=== PATIENT | male | born 1955 | race Caucasian/White ===

== ENCOUNTER 2020-10-04 21:57 | Inpatient (IN) ==
[2020-10-04] MEDS ORDERED: MoRPHine SULFATE 4 MG/ML 1 ML CARP\\VIAL IV STA (22:20)
[2020-10-04] MEDS ORDERED: SODIUM CHLORIDE 0.9% 1000ML 1,000 ML IV STA (22:20)
[2020-10-04] MEDS ORDERED: KETOROLAC TROMETHAMINE 15 MG/ML VIAL IV STA (22:20)
[2020-10-04] MEDS ORDERED: ONDANSETRON INJ 2 MG/ML 2 ML VIAL IV STA (22:20)
[2020-10-04 22:36] LABS: Basophils # (auto) 0.03 K/uL (0-0.2); Basophils % (auto) 0.2 %; Eosinophils # (auto) 0.03 K/uL (0-0.5); Eosinophils % (auto) 0.2 %; Hematocrit (blood only) 44.4 % (42-52); Hemoglobin 15.6 g/dL (14.0-18.0); Immature Granulocytes # (auto) 0.06 K/uL (0.00-0.02); Immature Granulocytes % (auto) 0.4 %; Lymphocytes # (auto) 2.59 K/uL (1.2-3.4); Lymphocytes % (auto) 17.8 %; Mean Corpuscular Hemoglobin 30.8 pg (25-34); Mean Corpuscular Hgb Conc 35.1 g/dL (32-36); Mean Corpuscular Volume 87.7 fL (80-100); Mean Platelet Volume 10.3 fL (7.4-10.4); Monocytes # (auto) 0.77 K/uL (0.11-0.59); Monocytes % (auto) 5.3 %; Neutrophils # (auto) 11.08 K/uL (1.4-6.5); Neutrophils % (auto) 76.1 %; Platelet Count 250 K/uL (130-400); RDW Coefficient of Variation 13.9 % (11.5-14.5); RDW Standard Deviation 44.7 fL (36.4-46.3); Red Blood Count 5.06 M/uL (4.7-6.1); White Blood Count 14.56 K/uL (4.8-10.8)
[2020-10-04 23:02] LABS: BUN Creatinine Ratio 15.7 (10-20); Calcium 9.1 mg/dl (8.5-10.1); Creatinine Clr Calc Pharmacy 42.6 ml/min; Est GFR (African American) 50.9 ml/min; Est GFR (Non-African American) 43.9 ml/min; Potassium 3.7 mmol/L (3.5-5.1)
[2020-10-04 23:05] LABS: Albumin Globulin Ratio 1.2 (0.9-2); Bilirubin,Total 0.5 mg/dl (0.2-1); Globulin 3.3 gm/dl (2.5-4.0); Total Protein 7.3 gm/dl (6.4-8.2)
--- NOTE | 2020-10-04 23:45 | CT Scan Report ---
CT SCAN OF THE ABDOMEN AND PELVIS WITHOUT IV CONTRAST CLINICAL HISTORY: Right lower quadrant abdominal pain/right flank pain. COMPARISON STUDY: No priors. TECHNIQUE: CT scan of the abdomen and pelvis is performed from the lung bases to the proximal femora. Images are reviewed in the axial, sagittal, and coronal planes. IV contrast was not administered for this examination. A dose lowering technique was utilized adhering to the principles of ALARA. CT DOSE: 365.50 mGy.cm FINDINGS: Lung bases: The heart is normal in size and without pericardial effusion. The lung bases are clear no ting dependent atelectasis. There is a tiny hiatal hernia. Liver: The unenhanced liver is normal in size, contour, and attenuation. There is no intrahepatic leo iary ductal dilatation. Scattered hepatic cysts measure up to 1.7 cm. Gallbladder: Unremarkable. Spleen: Normal in size and attenuation. Pancreas: Unremarkable. Adrenal glands: Unremarkable. Kidneys: The unenhanced kidneys are normal in size. There is a 9 mm obstructing calculus in the right proximal ureter at the level of L3-L4 below the ureteropelvic junction. This is best seen on image # 210 and causes moderate to severe right-sided hydronephrosis. There is associated right-sided perinep hric stranding and fluid. There are least 4 additional nonobstructing right renal calculi which measu re up to 6 mm. No left renal calculi are identified and there is no left-sided hydronephrosis. Renal sinus cysts on the left measure up to 3.8 cm. Abdominal vasculature: The abdominal aorta is normal in course and caliber noting mild atheroscleroti c calcification. Bowel: The small bowel and colon are normal in course and caliber. The appendix is not identified an d reported surgically absent. Peritoneum: There is no intraperitoneal free air or abdominal ascites. There is a fat-containing umbi lical hernia. Lymphadenopathy: None. Pelvic viscera: The bladder, prostate, and seminal vesicles are normal as visualized. Skeletal structures: There is mild lumbosacral spondylosis. No lytic or blastic lesions are seen. IMPRESSION: 1. There is a 9 mm obstructing calculus in the right proximal ureter as above. This causes moderate t o severe right hydronephrosis. 2. Additional nonobstructing right renal calculi as above. 3. No left renal calculi are seen. ACT 112: Negative or not required by law. Electronically signed by: Darnell Schofield M.D. 10/04/2020 11:43 PM
[2020-10-04] MEDS ORDERED: TAMSULOSIN HCL 0.4 MG CAP PO ONE (23:57)
--- NOTE | 2020-10-05 00:31 | Emergency Department Note ---
History of Present Illness General Chief complaint: Abdominal Pain Stated complaint: ABDOMINAL PAIN History of Present Illness Maximum Pain Intensity: 0 This 65-year-old has had an appendectomy in the past presents to the ER complaining of right flank pain that radiates to his groin Location: Right flank Quality: Sharp Severity: Moderate Duration: Tonight Timing: Started 2 hours ago Context: Patient was concerned and came in Modifying factors: better with nothing; worse with nothing Patient denies chest pain, dyspnea, fever, chills, vomiting, diarrhea, urinary symptoms. No testicular pain. Home Medications Medication Instructions Recorded Confirmed Type losartan 25 mg tablet 25 mg PO HS 10/04/20 10/05/20 History pantoprazole 40 mg tablet,delayed 40 mg PO DAILY 10/04/20 10/04/20 History release Allergies Allergy/AdvReac Type Severity Reaction Status Date / Time No Known Allergies Allergy Unverified 10/04/20 23:22 Past Med/Surg History Medical History High blood pressure Surgical History Hx of appendectomy Social History Smoking Status: Never smoker Feels Safe at Home: Yes Review of Systems A total of 10 systems reviewed and were otherwise negative Physical Exam Vital Signs Vital Signs - 24 hr 10/04/20 22:02 10/04/20 22:20 10/04/20 22:26 Temperature 36.3 C L Temperature Source Temporal Artery Scan Pulse Rate 70 65 69 Pulse Rate from SpO2 Sensor 68 Pulse Rhythm Regular Respiratory Rate 16 19 21 Respiratory Effort / Characteristics Non-Labored Spontaneous Respiratory Depth Normal Blood Pressure 193/108 H 184/107 H Blood Pressure Mean 136 132 Pulse Oximetry 100 100 97 Oxygen Delivery Method Room Air Room Air Room Air Sepsis Recent Fever Within 48 Hours No Sepsis New/Unexplained Change in Mental Status No Sepsis Action Taken by Nursing No Action Required 10/04/20 22:41 10/04/20 23:00 10/04/20 23:26 Temperature Temperature Source Pulse Rate 66 69 69 Pulse Rate from SpO2 Sensor 66 70 70 Pulse Rhythm Respiratory Rate 18 17 14 Respiratory Effort / Characteristics Respiratory Depth Blood Pressure 165/103 H 152/99 H 160/101 H Blood Pressure Mean 123 116 120 Pulse Oximetry 97 97 97 Oxygen Delivery Method Room Air Room Air Room Air Sepsis Recent Fever Within 48 Hours Sepsis New/Unexplained Change in Mental Status Sepsis Action Taken by Nursing 10/04/20 23:30 10/05/20 00:00 10/05/20 00:13 Temperature Temperature Source Pulse Rate 71 66 Pulse Rate from SpO2 Sensor 70 66 Pulse Rhythm Respiratory Rate 21 17 Respiratory Effort / Characteristics Respiratory Depth Blood Pressure 151/99 H 155/105 H 152/101 H Blood Pressure Mean 116 121 118 Pulse Oximetry 97 98 Oxygen Delivery Method Sepsis Recent Fever Within 48 Hours Sepsis New/Unexplained Change in Mental Status Sepsis Action Taken by Nursing 10/05/20 00:25 10/05/20 00:30 Temperature Temperature Source Pulse Rate 75 71 Pulse Rate from SpO2 Sensor 69 71 Pulse Rhythm Respiratory Rate 15 20 Respiratory Effort / Characteristics Respiratory Depth Blood Pressure 172/104 H 170/105 H Blood Pressure Mean 126 126 Pulse Oximetry 97 98 Oxygen Delivery Method Sepsis Recent Fever Within 48 Hours Sepsis New/Unexplained Change in Mental Status Sepsis Action Taken by Nursing VITALS: Vitals are noted on the nurse's note and reviewed by myself. Vital signs hypertensive GENERAL: Pleasant male who appears in pain, in no acute distress, nondiaphoretic, well-developed well-nourished. SKIN: The skin was without rashes, erythema, edema, or bruising. There is no tenting of the skin. Capillary reflex less than 2 seconds. HEAD: Normocephalic atraumatic. EARS: External auditory canals clear, EYES: Pupils equal round and reactive to light and accommodation. Conjunctivae without injection, sclerae without icterus. Extraocular movements intact. NOSE: Patent, turbinates without inflammation or discharge. MOUTH: Mucous membranes moist. Pharynx without erythema or exudate. Uvula midline. Airway patent. Tongue does not deviate. NECK: Supple without nuchal rigidity. No lymphadenopathy. No thyromegaly. Cervical spine is nontender. No JVD. HEART: Regular rate and rhythm LUNGS: Clear to auscultation bilaterally without wheezes, rales or rhonchi. No retractions or accessory muscle use. ABDOMEN: Positive bowel sounds x 4. Normal tympanic percussion. Soft, nontender, without masses or organomegaly. Chavarria sign negative. No guarding or rebound tenderness. No CVA tenderness MUSCULOSKELETAL: No muscle atrophy, erythema, or edema noted. NEURO: Patient was alert and oriented to person place and time. Normal sensation to light and sharp touch. No focal neurological deficits. Course Administered Medications Discontinued Medications Sodium Chloride (Nss 1000ml) 1,000 mls @ 999 mls/hr IV .Q1H1M STA Stop: 10/04/20 23:20 Last Infusion: 10/04/20 23:34 Dose: 0 mls/hr Documented by: [id number] Admin: 10/04/20 22:33 Dose: 999 mls/hr Documented by: [id number] Ketorolac Tromethamine (Ketorolac Tromethamine 15 Mg/Ml Vial) 10 mg IV NOW STA Stop: 10/04/20 22:21 Last Admin: 10/04/20 22:37 Dose: 10 mg Documented by: [id number] Morphine Sulfate (Morphine Sulfate 4 Mg/Ml 1 Ml Carp\Vial) 4 mg IV NOW STA Stop: 10/04/20 22:21 Last Admin: 10/04/20 22:36 Dose: 4 mg Documented by: [id number] Ondansetron HCl (Ondansetron Inj 2 Mg/Ml 2 Ml Vial) 4 mg IV NOW STA Stop: 10/04/20 22:21 Last Admin: 10/04/20 22:34 Dose: 4 mg Documented by: [id number] Tamsulosin HCl (Tamsulosin Hcl 0.4 Mg Cap) 0.4 mg PO NOW ONE Stop: 10/04/20 23:58 Last Admin: 10/05/20 00:11 Dose: 0.4 mg Documented by: [id number] Medical Decision Making Medical Records Attestation: I reviewed the patient's medical records. Home Medications Current Medication List: was personally reviewed by me Laboratory Data Attestation: I reviewed the patient's lab results. Result diagrams: 10/04/20 22:25 10/04/20 22:25 Lab Results 10/04/20 10/04/20 10/05/20 Range/Units 22:25 22:25 00:25 WBC 14.56 H (4.8-10.8) K/uL RBC 5.06 (4.7-6.1) M/uL Hgb 15.6 (14.0-18.0) g/dL Hct 44.4 (42-52) % MCV 87.7 (80-100) fL MCH 30.8 (25-34) pg MCHC 35.1 (32-36) g/dL RDW Std Deviation 44.7 (36.4-46.3) fL RDW Coeff of Rubina 13.9 (11.5-14.5) % Plt Count 250 (130-400) K/uL MPV 10.3 (7.4-10.4) fL Immature Gran % (Auto) 0.4 % Neut % (Auto) 76.1 % Lymph % (Auto) 17.8 % Gladwin % (Auto) 5.3 % Eos % (Auto) 0.2 % Baso % (Auto) 0.2 % Neut # (Auto) 11.08 H (1.4-6.5) K/uL Lymph # (Auto) 2.59 (1.2-3.4) K/uL Gladwin # (Auto) 0.77 H (0.11-0.59) K/uL Eos # (Auto) 0.03 (0-0.5) K/uL Baso # (Auto) 0.03 (0-0.2) K/uL Immature Gran # (Auto) 0.06 H (0.00-0.02) K/uL Sodium 141 (136-145) mmol/L Potassium 3.7 (3.5-5.1) mmol/L Chloride 109 H (98-107) mmol/L Carbon Dioxide 27 (21-32) mmol/L Anion Gap 5.0 (3-11) BUN 25 H (7-18) mg/dl Creatinine 1.61 H (0.6-1.4) mg/dl Est Cr Clr Drug Dosing 42.6 ml/min Est GFR ( Amer) 50.9 ml/min Est GFR (Non-Af Amer) 43.9 ml/min BUN/Creatinine Ratio 15.7 (10-20) Glucose 102 H (70-99) mg/dl Calcium 9.1 (8.5-10.1) mg/dl Total Bilirubin 0.5 (0.2-1) mg/dl AST 55 H (15-37) U/L ALT 50 (12-78) U/L Alkaline Phosphatase 60 (45-117) U/L Total Protein 7.3 (6.4-8.2) gm/dl Albumin 4.0 (3.4-5.0) gm/dl Globulin 3.3 (2.5-4.0) gm/dl Albumin/Globulin Ratio 1.2 (0.9-2) Urine Color Yellow Urine Appearance Clear (Clear) Urine pH 5.0 (4.5-7.5) Ur Specific [place] 1.022 (1.000-1.030) Urine Protein Negative (Negative) Urine Glucose (UA) Negative (Negative) Urine Ketones Negative (Negative) Urine Blood 3+ H (Negative) Urine Nitrite Negative (Negative) Urine Bilirubin Negative (Negative) Urine Urobilinogen Negative (Negative) Ur Leukocyte Esterase Negative (Negative) Urine WBC (Auto) 1-5 (0-5) /hpf Urine RBC (Auto) 0-4 (0-4) /hpf U Hyaline Cast (Auto) 1-5 (0-5) /lpf U Epithel Cells (Auto) 0-5 (0-5) /lpf Urine Bacteria (Auto) Negative (Negative) COVID-19 Eval Order 10/05/20 Range/Units 00:32 WBC (4.8-10.8) K/uL RBC (4.7-6.1) M/uL Hgb (14.0-18.0) g/dL Hct (42-52) % MCV (80-100) fL MCH (25-34) pg MCHC (32-36) g/dL RDW Std Deviation (36.4-46.3) fL RDW Coeff of Rubina (11.5-14.5) % Plt Count (130-400) K/uL MPV (7.4-10.4) fL Immature Gran % (Auto) % Neut % (Auto) % Lymph % (Auto) % Gladwin % (Auto) % Eos % (Auto) % Baso % (Auto) % Neut # (Auto) (1.4-6.5) K/uL Lymph # (Auto) (1.2-3.4) K/uL Gladwin # (Auto) (0.11-0.59) K/uL Eos # (Auto) (0-0.5) K/uL Baso # (Auto) (0-0.2) K/uL Immature Gran # (Auto) (0.00-0.02) K/uL Sodium (136-145) mmol/L Potassium (3.5-5.1) mmol/L Chloride (98-107) mmol/L Carbon Dioxide (21-32) mmol/L Anion Gap (3-11) BUN (7-18) mg/dl Creatinine (0.6-1.4) mg/dl Est Cr Clr Drug Dosing ml/min Est GFR ( Amer) ml/min Est GFR (Non-Af Amer) ml/min BUN/Creatinine Ratio (10-20) Glucose (70-99) mg/dl Calcium (8.5-10.1) mg/dl Total Bilirubin (0.2-1) mg/dl AST (15-37) U/L ALT (12-78) U/L Alkaline Phosphatase (45-117) U/L Total Protein (6.4-8.2) gm/dl Albumin (3.4-5.0) gm/dl Globulin (2.5-4.0) gm/dl Albumin/Globulin Ratio (0.9-2) Urine Color Urine Appearance (Clear) Urine pH (4.5-7.5) Ur Specific [place] (1.000-1.030) Urine Protein (Negative) Urine Glucose (UA) (Negative) Urine Ketones (Negative) Urine Blood (Negative) Urine Nitrite (Negative) Urine Bilirubin (Negative) Urine Urobilinogen (Negative) Ur Leukocyte Esterase (Negative) Urine WBC (Auto) (0-5) /hpf Urine RBC (Auto) (0-4) /hpf U Hyaline Cast (Auto) (0-5) /lpf U Epithel Cells (Auto) (0-5) /lpf Urine Bacteria (Auto) (Negative) COVID-19 Eval Order Covid19 at [facility] Imaging Data Attestation: I personally reviewed and interpreted this imaging study as follows: MDM Narrative Prior records/ancillary studies reviewed. Triage Nursing notes reviewed. Additional history obtained from the family. The patient's history was concerning for flank pain. Differential diagnosis: Etiologies such as renal colic, appendicitis, diverticulitis, mesenteric ischemia, aortic pathology, infections, inflammatory bowel disease, PUD, biliary pathology, UTI, as well as others were entertained. Physical examination findings: As above. ER treatment provided: Morphine, Zofran, Toradol, Flomax, IV fluids On reassessment the patient felt better. Diagnostic interpretation by me: The labs revealed leukocytosis. Urinalysis revealed There was no sign of UTI. Mildly elevated creatinine Imaging studies: As above Consultation: A consultation was placed with the hospitalist. The case was discussed and diagnostics were reviewed. The patient was evaluated in the ER for further treatment. It appears that the patient has isolated renal colic from a right sided stone. Patient was still in moderate amount of pain. He is a very large stone. Medicine was consulted. He will be evaluated for possible admission. By the evaluation outlined above emergent etiologies such as appendicitis, diverticulitis, mesenteric ischemia, aortic pathology, infections, inflammatory bowel disease, PUD, biliary pathology, UTI, as well as others were deemed relatively unlikely. The pt informed about the findings as listed above. All questions were answered and pleased with the treatment. The chart was completed utilizing [employer] Speech voice recognition software. Grammatical errors, random word insertions, pronoun errors, and incomplete sentences are an occassional consequence of this system due to software limitations, ambient noise, and hardware issues. Any formal questions or heidi rns about the content, text, or information contained within the body of this dictation should be directly addressed to the physician inside sales assistant for clarification. Impression & Plan Renal colic on right side, Ureterolithiasis, FREDDIE (acute kidney injury) Discharge Plan Visit Data Chief Complaint: Abdominal Pain Stated Complaint: ABDOMINAL PAIN ED Provider: Mily Bridges ED Midlevel Provider: Juanis Gimenez Discharge Problem: Renal colic on right side, Ureterolithiasis, FREDDIE (acute kidney injury) Patient Disposition: Admitted As Inpatient Condition: Good Forms Stand Alone Forms: emaze Prescriptions Prescriptions: No Action pantoprazole 40 mg Tablet,Delayed Release (Dr/Ec) 40 mg PO DAILY RF: 0 losartan 25 mg Tablet 25 mg PO HS RF: 0 Referrals Referrals: Noble Olivares MD [Primary Care Provider] -
[2020-10-05 01:02] LABS: Appearance Urine Clear (Clear); Bacteria Urine Automated Negative (Negative); Bilirubin Urine Negative (Negative); Blood Urine 3+ (Negative); Color Urine Yellow; Epithelial Cell Urine Auto 0-5 /lpf (0-5); Glucose Urine UA Negative (Negative); Ketones Urine Negative (Negative); Leukocyte Esterase Urine Negative (Negative); Nitrite Urine Negative (Negative); Protein Urine Negative (Negative); RBC Urine Automated 0-4 /hpf (0-4); Specific Gravity Urine 1.022 (1.000-1.030); Urobilinogen Urine Negative (Negative)
--- NOTE | 2020-10-05 02:36 | History and Physical Report ---
DATE OF ADMISSION: 10/05/2020 CHIEF COMPLAINT: Right abdominal pain and kidney stone. HISTORY OF PRESENT ILLNESS: This is a 65-year-old male with past medical history significant for hypertension, history of gastritis, history of rosacea, chronic back pain, presents with right sided abdominal pain and groin pain, started tonight, initially mild,but soon was very severe, also some nausea and radiated to the back which prompted him to come to the ER. Imaging studies shows right proximal ureteral kidney stone, 9 mm. The patient thinks that he might have passed a stone over 6 years ago; but otherwise not diagnosed with kidney stones in the past. Denies any fever or chills. No burning micturition, no hematuria. Normal bowel movements. No diarrhea or constipation. No chest pain, no shortness of breath, no cough, no fever, no chills, no headache, no dizziness, no blurred visions, no earache, no runny nose, no sore throat. Appetite is okay. Currently, resting comfortably and hemodynamically stable. ALLERGIES: ATENOLOL. PAST MEDICAL HISTORY: As mentioned above. PAST SURGICAL HISTORY: Colonoscopy, appendectomy. MEDICATIONS: The patient on losartan 25 mg p.o. at bedtime, Protonix 40 mg p.o. daily. FAMILY HISTORY: Significant for father has diabetes, paternal grandfather has diabetes, mother has hypertension. SOCIAL HISTORY: . No smoking. Drinks alcohol, no drug use. REVIEW OF SYSTEMS: As per HPI. Rest of review of systems is negative. PHYSICAL EXAMINATION: GENERAL: The patient is of moderate build, not in acute distress. VITAL SIGNS: Temperature 36.3, pulse 71, respiratory rate 20, blood pressure 170/105, oxygen 98% on room air. HEENT: EOMI. Oral mucosa moist. NECK: No JVD, no neck masses. CARDIOVASCULAR: S1 and S2 heard. Regular rate and rhythm. No murmur, no gallop. RESPIRATORY: Normal AP diameter. No accessory muscle use. No wheezing, no crackles. ABDOMEN: Soft, bowel sounds present. Mild tenderness in right lower quadrant. No guarding, no rigidity, no distention. CENTRAL NERVOUS SYSTEM: Cranial nerves II-XII grossly intact, nonfocal. EXTREMITIES: No edema, no erythema. LABORATORY DATA: WBC 14.1, hemoglobin 15.6, hematocrit 44.4, platelets 250. Sodium 141, potassium 3.7, chloride 109, bicarbonate 27, BUN 25, creatinine 1.6, serum glucose 102, calcium 9.1, total bilirubin 0.5, AST 55, ALT 50, alkaline phosphatase 60. Urinalysis, +3 blood. SARS-CoV-2 PCR pending. IMAGING DATA: CT of abdomen and pelvis is showing 9 mm obstructing calculus in the right proximal ureter causing moderate to severe hydronephrosis. Additional nonobstructing right renal calculi. ASSESSMENT AND PLAN: This is a 65-year-old male, presents with right renal colic. 1. Right renal colic and obstructing proximal right ureteral calculus. Received pain medication and Flomax in the ER. We will continue with IV fluids, IV Dilaudid p.r.n., Flomax. We will give a dose of Rocephin and consult urology in a.m. We will keep him n.p.o. until seen by urology. Monitor in the medical floor. 2. FREDDIE. Baseline creatinine 1.3, current creatinine 1.6. Getting fluids as above. Hold losartan. We will monitor the labs in a.m. 3. Hypertension. Holding losartan for FREDDIE. We will place him on IV hydralazine p.r.n. 4. Gastroesophageal reflux disease. Continue Protonix. 5. Deep venous thrombosis prophylaxis. Sequential compression devices for now. DISPOSITION: Admit to medical floor. Expect to discharge home and follow up with family doctor. Level 1 full code. Job ID: [id number] MTDD
[2020-10-05] MEDS ORDERED: ONDANSETRON INJ 2 MG/ML 2 ML VIAL IV PRN (02:42)
[2020-10-05] MEDS: SODIUM CHLORIDE 0.9% 1000ML 1,000 ML IV SCH ×3 (03:03→18:25)
[2020-10-05] MEDS: HYDROmorphone INJ 0.5 MG/0.5 ML SYR IV PRN ×5 (05:07→21:22)
[2020-10-05] MEDS: cefTRIAXone SODIUM 1,000 MG in DEXTROSE 5% 50 ML IV SCH (07:25)
[2020-10-05 07:43] LABS: Basophils # (auto) 0.02 K/uL (0-0.2); Basophils % (auto) 0.2 %; Eosinophils # (auto) 0.06 K/uL (0-0.5); Eosinophils % (auto) 0.5 %; Hematocrit (blood only) 40.6 % (42-52); Immature Granulocytes # (auto) 0.04 K/uL (0.00-0.02); Immature Granulocytes % (auto) 0.4 %; Lymphocytes # (auto) 2.47 K/uL (1.2-3.4); Lymphocytes % (auto) 22.2 %; Mean Corpuscular Hemoglobin 30.6 pg (25-34); Mean Corpuscular Hgb Conc 34.5 g/dL (32-36); Mean Corpuscular Volume 88.6 fL (80-100); Mean Platelet Volume 10.1 fL (7.4-10.4); Monocytes # (auto) 0.76 K/uL (0.11-0.59); Monocytes % (auto) 6.8 %; Neutrophils # (auto) 7.76 K/uL (1.4-6.5); Neutrophils % (auto) 69.9 %; Platelet Count 192 K/uL (130-400); RDW Standard Deviation 45.5 fL (36.4-46.3); Red Blood Count 4.58 M/uL (4.7-6.1); White Blood Count 11.11 K/uL (4.8-10.8)
[2020-10-05 07:58] LABS: BUN Creatinine Ratio 14.7 (10-20); Calcium 7.7 mg/dl (8.5-10.1); Creatinine Clr Calc Pharmacy 39.9 ml/min; Est GFR (African American) 47.3 ml/min; Est GFR (Non-African American) 40.8 ml/min; Magnesium 2.3 mg/dl (1.8-2.4); Potassium 3.3 mmol/L (3.5-5.1)
[2020-10-05] MEDS: PANTOprazole 40 MG TAB PO SCH (09:09)
[2020-10-05] MEDS: TAMSULOSIN HCL 0.4 MG CAP PO SCH (09:09)
--- NOTE | 2020-10-05 11:08 | Urology Consultation ---
Date of Consultation October 05, 2020 Assessment & Plan (1) Ureterolithiasis: (2) Renal colic on right side: (3) Peyronie disease: Patient has a large right ureteral stone but is stable. OR tomorrow for right ureteral stent NPO after midnight Outpatient treatment for his Peyronie's Disease History of Present Illness Reason for Consultation: right ureteral stone, obstruction Attending Physician: Yrn Gaming MD History of Present Illness The patient is a 65 yo male with a history of abrupt right flank pain yesterday. He presented to the ER and was found to have a 9mm proximal right ureteral stone with moderate hydronephrosis. Patient reports that he had some nausea yesterday - none today. He maybe passed one stop prior but didn't catch anything or seek treatment. He denies CP or SOB. No F/C. His pain is currently well controlled and his labs are stable. He also discussed with me fall that he experienced 2 years ago and he now has Peyronie Disease with an upward curvature and a plaque. He has not been treated for this but would like to be in the future. Allergies Allergy/AdvReac Type Severity Reaction Status Date / Time No Known Allergies Allergy Unverified 10/04/20 23:22 Home Medications Medication Instructions Recorded Confirmed Type losartan 25 mg tablet 25 mg PO HS 10/04/20 10/05/20 History pantoprazole 40 mg tablet,delayed 40 mg PO DAILY 10/04/20 10/04/20 History release Patient History Medical History High blood pressure Surgical History Hx of appendectomy Social History Smoking Status: Never smoker Do You Dip or Chew Tobacco: No; Hx Alcohol Use: No Hx Substance Use: No Preferred Language: [place]se Communication Ability: Effective [place] Required: No Beliefs That Will Affect Care: None marital status: Current Living Situation: Spouse Other Information That Helps Us Care for You: No Feels Safe at Home: Yes Safety Concerns: Feels Safe At This Time Assistive Devices: Glasses Review of Systems Review of Systems: neg other than per HPI Physical Exam Physical Exam: NAD unlabored regular rate soft NT LE without edema AO x 3 Results & Data ([facility]) Vital Signs (Past 12 Hours) Vital Signs Temp Pulse Pulse Resp BP BP Pulse Ox 10/05/20 07:26 36.7 C 69 16 149/90 H 97 10/05/20 03:02 152/90 H 10/05/20 02:30 36.7 C 78 14 167/100 H 98 10/05/20 01:30 88 20 155/86 H 99 10/05/20 00:30 71 20 170/105 H 98 10/05/20 00:25 75 15 172/104 H 97 10/05/20 00:13 152/101 H 10/05/20 00:00 66 17 155/105 H 98 10/04/20 23:30 71 21 151/99 H 97 10/04/20 23:26 69 14 160/101 H 97 PG Care Time/CCT Total # of Minutes Spent Total Time Spent with Patient: Total time spent is greater than 50% in coordination of care (as documented) at patient's floor/unit and/or counseling patient: [place] [address] Initial Inpt Care Lvl 3 Patient Type New History Detailed Exam Expanded Problem Focused Medical Decision Making Moderate Complexity Diagnoses Ureterolithiasis N20.1 Renal colic on right side N23 Peyronie disease N48.6 Time Spent (min) 30
[2020-10-05] MEDS ORDERED: ACETAMINOPHEN 1000 MG/100 ML IV IV STA (15:18)
[2020-10-05] MEDS ORDERED: HYDROmorphone INJ 0.5 MG/0.5 ML SYR IV STA (15:19)
[2020-10-05] MEDS: LIDOCAINE 5% 1 PATCH TD SCH (15:43)
[2020-10-05] MEDS: hydrALAZINE HCL 20 MG/ML VIAL IV PRN (15:48)
[2020-10-05] MEDS: oxyCODONE HCL IR 5 MG TAB (IMMEDIATE RELEASE) PO PRN (18:25)
[2020-10-05] MEDS: PHENAZOPYRIDINE HCL 200 MG TAB PO SCH (20:57)
[2020-10-06] MEDS: HYDROmorphone INJ 0.5 MG/0.5 ML SYR IV PRN ×3 (01:21→09:30)
[2020-10-06] MEDS: SODIUM CHLORIDE 0.9% 1000ML 1,000 ML IV SCH ×3 (01:21→17:59)
--- NOTE | 2020-10-06 07:06 | Anesthesiology Consultation ---
Date of Service October 06, 2020 Assessment & Plan (1) Encounter for pre-operative examination: Chart Review Chart Review: Acceptable Risk for Surgery Consults Requested none History Surgery Operation Date: 10/06/20 08:20 Proposed Procedures p Cystoscopy - Lucina Mnuoz MD s Ureteral Stent Insertion/Removal(Right) - Lucina Munoz MD Height/Weight Height: 5 ft 4 in Weight: 77.309 kg Allergies Allergy/AdvReac Type Severity Reaction Status Date / Time No Known Allergies Allergy Unverified 10/04/20 23:22 Medications Home Medications Medication Instructions Recorded Confirmed Last Taken losartan 25 mg tablet 25 mg PO HS 10/04/20 10/05/20 Unknown pantoprazole 40 mg tablet,delayed 40 mg PO DAILY 10/04/20 10/04/20 Unknown release Active Medications Generic Name Dose Route Start Last Admin Trade Name Freq PRN Reason Stop Dose Admin Hydralazine HCl 5 mg 10/05/20 02:42 10/05/20 15:48 Hydralazine Hcl 20 Mg/Ml Vial IV 11/04/20 02:41 5 mg Q6H PRN Administration Hypertension Hydromorphone HCl 0.5 mg 10/05/20 17:39 10/06/20 05:13 Hydromorphone Inj 0.5 Mg/0.5 Ml Syr IV 10/19/20 02:41 0.5 mg Q3H PRN Administration Pain Ceftriaxone Sodium 1,000 mg/ 50 mls @ 100 mls/hr 10/05/20 08:00 10/05/20 08:13 Dextrose IV 10/15/20 07:59 Infused Q24H SAEID Infusion Protocol Sodium Chloride 1,000 mls @ 125 mls/hr 10/05/20 02:42 10/06/20 01:21 Nss 1000ml IV 11/04/20 02:41 125 mls/hr .Q8H SAEID Administration Lidocaine 1 patch 10/05/20 15:30 10/05/20 15:43 Lidocaine 5% 1 Patch TD 11/04/20 15:29 1 patch QAM SAEID Administration Miscellaneous 1 ea 10/05/20 21:00 10/05/20 21:28 Remove Lidoderm Patch N/A 11/04/20 20:59 Not Given DAILY@2100 SAEID Ondansetron HCl 4 mg 10/05/20 02:42 10/05/20 17:27 Ondansetron Inj 2 Mg/Ml 2 Ml Vial IV 11/04/20 02:41 4 mg Q6H PRN Administration Nausea Oxycodone HCl 5 mg 10/05/20 17:40 10/05/20 18:25 Oxycodone Hcl Ir 5 Mg Tab (Immediate Release) PO 10/19/20 17:39 5 mg Q4H PRN Administration Pain Pantoprazole Sodium 40 mg 10/05/20 09:00 10/05/20 09:09 Pantoprazole 40 Mg Tab PO 11/04/20 08:59 40 mg DAILY SAEID Administration Phenazopyridine HCl 200 mg 10/05/20 21:00 10/05/20 20:57 Phenazopyridine Hcl 200 Mg Tab PO 11/04/20 20:59 200 mg TID SAEID Administration Tamsulosin HCl 0.4 mg 10/05/20 09:00 10/05/20 09:09 Tamsulosin Hcl 0.4 Mg Cap PO 11/04/20 08:59 0.4 mg QAM SAEID Administration NPO Date Last Intake of Fluids: 10/05/20 Time Last Intake of Fluids: 23:59 Date Last Intake of Solids: 10/05/20 Time Last Intake of Solids: 23:59 Past Medical History Medical History High blood pressure Past Surgical History Surgical History Hx of appendectomy Social History Smoking Status: Never smoker Do You Dip or Chew Tobacco: No Hx Alcohol Use: No Hx Substance Use: No substance use type: does not use Physical Exam Vital Signs Last Vital Signs Temp 37.5 C 10/05/20 23:33 Pulse 95 H 10/05/20 23:33 Resp 18 10/05/20 23:33 BP 147/81 H 10/05/20 23:33 Pulse Ox 94 10/05/20 23:33 Testing Laboratory Results 10/05/20 07:10 10/05/20 07:10 Urine Color Yellow 10/05/20 00:25 Urine Appearance Clear (Clear) 10/05/20 00:25 Urine pH 5.0 (4.5-7.5) 10/05/20 00:25 Ur Specific [place] 1.022 (1.000-1.030) 10/05/20 00:25 Urine Protein Negative (Negative) 10/05/20 00:25 Urine Glucose (UA) Negative (Negative) 10/05/20 00:25 Urine Ketones Negative (Negative) 10/05/20 00:25 Urine Nitrite Negative (Negative) 10/05/20 00:25 Ur Leukocyte Esterase Negative (Negative) 10/05/20 00:25 Urine WBC (Auto) 1-5 /hpf (0-5) 10/05/20 00:25 Urine RBC (Auto) 0-4 /hpf (0-4) 10/05/20 00:25 U Hyaline Cast (Auto) 1-5 /lpf (0-5) 10/05/20 00:25 U Epithel Cells (Auto) 0-5 /lpf (0-5) 10/05/20 00:25 Urine Bacteria (Auto) Negative (Negative) 10/05/20 00:25
[2020-10-06] MEDS ORDERED: ONDANSETRON INJ 2 MG/ML 2 ML VIAL ONE ×2 (07:22→09:16)
[2020-10-06] MEDS ORDERED: PROPOFOL IV EMULSION 10 MG/ML 20 ML VIAL IV ONE (07:22)
[2020-10-06] MEDS ORDERED: fentaNYL citrate 100 MCG/2 ML VIAL ONE (07:22)
[2020-10-06] MEDS ORDERED: MIDAZOLAM HCL 1 MG/ML 2ML VIAL ONE (07:22)
[2020-10-06] MEDS ORDERED: LIDOCAINE 2% 2 ML VIAL/AMP(20MG/ML) INFIL ONE (07:22)
--- NOTE | 2020-10-06 07:31 | History & Physical Bridge Note ---
Date of Service October 06, 2020 History & Physical Bridge Note I have examined the patient, reviewed the History & Physical and in the interval since the performance of the History & Physical I have noted the following changes of clinical significance: no changes noted
[2020-10-06] MEDS ORDERED: ATROPINE SULFATE 0.1 MG/ML 10ML SYR IV PRN (07:45)
[2020-10-06] MEDS ORDERED: ONDANSETRON INJ 2 MG/ML 2 ML VIAL IV PRN (07:45)
[2020-10-06] MEDS ORDERED: ePHEDrine sulfate 50 MG/ML AMP IV PRN (07:45)
[2020-10-06] MEDS ORDERED: fentaNYL citrate 100 MCG/2 ML VIAL IV PRN (07:45)
[2020-10-06] MEDS: cefTRIAXone SODIUM 1,000 MG in DEXTROSE 5% 50 ML IV SCH (08:00)
--- NOTE | 2020-10-06 08:18 | Post Operative Brief Note ---
PG Immediate Post Op with CF Date of Surgery October 06, 2020 Pre & Post Diagnosis Operation Date: 10/06/20 08:20 Pre-Op Diagnosis: Right ureteral stone Post-Op Diagnosis: Right ureteral stone I identified the patient and participated in the time-out.: Yes Procedure Operation Date: 10/06/20 08:20 Actual Procedures p Cystoscopy; Right Ureteral Stent Insertion - Lucina Munoz MD Surgeon Lucina Munoz MD Lumber Puller none Estimated Blood Loss 0 Findings Consistent with Post-Op Diagnosis See note Fluids see anesthesia Drains Other (6F x 26cm right ureteral stent) Anesthesia Type MAC
--- NOTE | 2020-10-06 08:21 | Operative Report ---
PG Post Operative Report Pre & Post Diagnosis Operation Date: 10/06/20 08:20 Pre-Op Diagnosis: Right ureteral stone Post-Op Diagnosis: Right ureteral stone I identified the patient and participated in the time-out.: Yes Procedure Operation Date: 10/06/20 08:20 Actual Procedures p Cystoscopy; Right Ureteral Stent Insertion - Lucina Munoz MD Surgeon Lucina Munoz MD Counter Clerk none Estimated Blood Loss 0 Findings Consistent with Post-Op Diagnosis Fluids see anesthesa Specimens none Drains 6F x 26 cm right ureteral stent Anesthesia Type MAC Description of Procedure The patient was brought to the OR suite after discussing the risks and benefits of the surgery. He was placed in a lithotomy position. He was prepped and draped. There were no abnormalities involving the bladder. No tumors, tony thema, or stones were seen. The urethra was within normal limits. A wire was passed to the level of the right kidney without issues. I then was able to pass a 6F x 26 cm stent over the wire securing a nice coil in the bladder and kidney. The bladder was drained. He was transferred to PACU in stable condition. I attest to the content of the Intraoperative Record and any orders documented therein. Any exceptions are noted below.
--- NOTE | 2020-10-06 08:22 | Fluoroscopy Report ---
FL KUB CLINICAL HISTORY: RT CYSTO STENT COMPARISON STUDY: CT of the abdomen and pelvis October 04, 2020. FLUOROSCOPY TIME: 4 seconds. FLUOROSCOPIC IMAGES: 2 FINDINGS: Fluoroscopy was provided during cystoscopy and ureteral stent insertion. Right ureteral soraya nt appears appropriately positioned. IMPRESSION: Fluoroscopy provided during cystoscopy and right ureteral stent placement. ACT 112: Negative or not required by law. Electronically signed by: Uday Watson M.D. 10/06/2020 8:21 AM
[2020-10-06] MEDS ORDERED: POTASSIUM CHLORIDE CRTAB 20 MEQ TABCR PO STA (08:42)
--- NOTE | 2020-10-06 08:43 | Hospitalist Progress Note ---
Date of Service October 06, 2020 Assessment & Plan (1) Renal colic on right side: (2) Ureterolithiasis: (3) FREDDIE (acute kidney injury): Plan: This is a 65-year-old male, presents with right renal colic. 1. Right renal colic and obstructing proximal right ureteral calculus. Received pain medication and Flomax in the ER. We will continue with IV fluids, IV Dilaudid p.r.n., Flomax. We will give Rocephin and consult urology. Monitor in the medical floor. Seen by urology, now s/p Right ureteral stent placement (10/06). Tolerated procedure well. 2. FREDDIE. Secondary to above Baseline creatinine 1.3, on admission creatinine 1.6. Getting fluids as above. Hold losartan. Current Cr 1.8 now s/p procedure, expecting improvemt Cont. IVF, monitor BMP 3. Hypertension. Holding losartan for FREDDIE. We will place him on IV hydralazine p.r.n. 4. Gastroesophageal reflux disease. Continue Protonix. DVT prophylaxis. SCDs for now. DISPOSITION: Admit to medical floor. Expect to discharge home and follow up with family doctor. Code: full code. Admission and Anticipated Discharge Date Admission Date: October 05, 2020 Subjective Patient seen in follow-up of ureteral stone Patient is currently status post procedure, stent placement this morning He is sitting up in bed, in NAD Pain well controlled at this time No fever, chills, chest pain, abd. pain, nausea Review of Systems Review of Systems: All systems reviewed & are unremarkable except as noted in Subjective Physical Exam Physical Exam: GENERAL: The patient is of moderate build, not in acute distre ss. HEENT: NC/AT. EOMI. Oral mucosa moist. NECK: No JVD, no neck masses. CARDIOVASCULAR: S1 and S2 heard. Regular rate and rhythm. No murmur, no gallop. RESPIRATORY: Normal AP diameter. No accessory muscle use. No wheezing, no crackles. ABDOMEN: Soft, bowel sounds present. Mild tenderness in right lower quadrant. No guarding, no rigidity, no distention. NEURO: alert and oriented x3, speech fluent, no facial asymmetry, moves extremities. EXTREMITIES: No edema, no erythema. Results & Data Results & Data ([facility]) Vital Signs (Past 12 Hours) Vital Signs Temp Pulse Pulse Resp BP Pulse Ox 10/06/20 08:30 94 H 13 150/92 H 95 10/06/20 08:20 92 H 17 161/97 H 95 10/06/20 08:11 36.0 C L 97 H 16 150/92 H 94 10/05/20 23:33 37.5 C 95 H 18 147/81 H 94 Laboratory Results 10/06/20 10/06/20 Range/Units 08:56 08:56 WBC 13.42 H (4.8-10.8) K/uL RBC 4.61 L (4.7-6.1) M/uL Hgb 14.0 (14.0-18.0) g/dL Hct 41.0 L (42-52) % MCV 88.9 (80-100) fL MCH 30.4 (25-34) pg MCHC 34.1 (32-36) g/dL RDW Std Deviation 45.4 (36.4-46.3) fL RDW Coeff of Rubina 14.0 (11.5-14.5) % Plt Count 197 (130-400) K/uL MPV 9.8 (7.4-10.4) fL Sodium 138 (136-145) mmol/L Potassium 3.9 D (3.5-5.1) mmol/L Chloride 107 (98-107) mmol/L Carbon Dioxide 25 (21-32) mmol/L Anion Gap 6.0 (3-11) BUN 19 H (7-18) mg/dl Creatinine 1.86 H (0.6-1.4) mg/dl Est Cr Clr Drug Dosing 36.7 ml/min Est GFR ( Amer) 42.7 ml/min Est GFR (Non-Af Amer) 36.9 ml/min BUN/Creatinine Ratio 10.2 (10-20) Glucose 108 H (70-99) mg/dl Calcium 8.1 L (8.5-10.1) mg/dl Phosphorus 2.5 (2.5-4.9) mg/dl Magnesium 1.8 (1.8-2.4) mg/dl Medications Administered Current Inpatient Medications Acetaminophen (Acetaminophen 325 Mg Tab) 650 mg PO Q4H PRN PRN Reason: pain/fever Stop: 11/04/20 02:41 Atropine Sulfate (Atropine Sulfate 0.1 Mg/Ml 10ml Syr) 0.5 mg IV Q1M PRN PRN Reason: PACU Use-HR<40 &/or Bradycardi Stop: 10/06/20 15:45 Ephedrine Sulfate (Ephedrine Sulfate 50 Mg/Ml Amp) 5 mg IV Q5M PRN PRN Reason: PACU Use Only-SBP<90 mmHg Stop: 10/06/20 15:45 Fentanyl Citrate (Fentanyl Citrate 100 Mcg/2 Ml Vial) 50 mcg IV Q5M PRN PRN Reason: PACU Use Only-Pain Stop: 10/06/20 15:45 Hydralazine HCl (Hydralazine Hcl 20 Mg/Ml Vial) 5 mg IV Q6H PRN PRN Reason: Hypertension Stop: 11/04/20 02:41 Last Admin: 10/06/20 08:58 Dose: 5 mg Documented by: Hydromorphone HCl (Hydromorphone Inj 0.5 Mg/0.5 Ml Syr) 0.5 mg IV Q3H PRN PRN Reason: Pain Stop: 10/19/20 02:41 Last Admin: 10/06/20 09:30 Dose: 0.5 mg Documented by: Ceftriaxone Sodium 1,000 mg/ (Dextrose) 50 mls @ 100 mls/hr IV Q24H [facility]; Protocol Stop: 10/15/20 07:59 Last Infusion: 10/06/20 08:59 Dose: Infused Documented by: Sodium Chloride (Nss 1000ml) 1,000 mls @ 125 mls/hr IV .Q8H [facility] Stop: 11/04/20 02:41 Last Admin: 10/06/20 09:06 Dose: 125 mls/hr Documented by: Lidocaine (Lidocaine 5% 1 Patch) 1 patch TD QAM [facility] Stop: 11/04/20 15:29 Last Admin: 10/06/20 09:00 Dose: 1 patch Documented by: Miscellaneous (Remove Lidoderm Patch) 1 ea N/A DAILY@2100 [facility] Stop: 11/04/20 20:59 Last Admin: 10/05/20 21:28 Dose: Not Given Documented by: Ondansetron HCl (Ondansetron Inj 2 Mg/Ml 2 Ml Vial) 4 mg IV Q6H PRN PRN Reason: Nausea Stop: 11/04/20 02:41 Last Admin: 10/05/20 17:27 Dose: 4 mg Documented by: Ondansetron HCl (Ondansetron Inj 2 Mg/Ml 2 Ml Vial) 4 mg IV ONCE PRN PRN Reason: PACU Use Only-Nausea/Vomiting Stop: 10/06/20 15:46 Oxycodone HCl (Oxycodone Hcl Ir 5 Mg Tab (Immediate Release)) 5 mg PO Q4H PRN PRN Reason: Pain Stop: 10/19/20 17:39 Last Admin: 10/06/20 10:10 Dose: 5 mg Documented by: Pantoprazole Sodium (Pantoprazole 40 Mg Tab) 40 mg PO DAILY [facility] Stop: 11/04/20 08:59 Last Admin: 10/06/20 09:00 Dose: 40 mg Documented by: Phenazopyridine HCl (Phenazopyridine Hcl 200 Mg Tab) 200 mg PO TID [facility] Stop: 11/04/20 20:59 Last Admin: 10/06/20 09:00 Dose: 200 mg Documented by: Tamsulosin HCl (Tamsulosin Hcl 0.4 Mg Cap) 0.4 mg PO QAM [facility] Stop: 11/04/20 08:59 Last Admin: 10/06/20 09:00 Dose: 0.4 mg Documented by:
[2020-10-06] MEDS: hydrALAZINE HCL 20 MG/ML VIAL IV PRN (08:58)
[2020-10-06] MEDS: TAMSULOSIN HCL 0.4 MG CAP PO SCH (09:00)
[2020-10-06] MEDS: PHENAZOPYRIDINE HCL 200 MG TAB PO SCH ×3 (09:00→22:09)
[2020-10-06] MEDS: PANTOprazole 40 MG TAB PO SCH (09:00)
[2020-10-06] MEDS: LIDOCAINE 5% 1 PATCH TD SCH (09:00)
[2020-10-06 09:10] LABS: Mean Corpuscular Hemoglobin 30.4 pg (25-34); Mean Corpuscular Hgb Conc 34.1 g/dL (32-36); Mean Corpuscular Volume 88.9 fL (80-100); Mean Platelet Volume 9.8 fL (7.4-10.4); Platelet Count 197 K/uL (130-400); RDW Standard Deviation 45.4 fL (36.4-46.3); Red Blood Count 4.61 M/uL (4.7-6.1); White Blood Count 13.42 K/uL (4.8-10.8)
[2020-10-06 09:57] LABS: BUN Creatinine Ratio 10.2 (10-20); Calcium 8.1 mg/dl (8.5-10.1); Creatinine Clr Calc Pharmacy 36.7 ml/min; Est GFR (African American) 42.7 ml/min; Est GFR (Non-African American) 36.9 ml/min; Magnesium 1.8 mg/dl (1.8-2.4); Phosphorus 2.5 mg/dl (2.5-4.9); Potassium 3.9 mmol/L (3.5-5.1)
[2020-10-06] MEDS: oxyCODONE HCL IR 5 MG TAB (IMMEDIATE RELEASE) PO PRN (10:10)
[2020-10-06] MEDS ORDERED: KETOROLAC TROMETHAMINE 15 MG/ML VIAL IV ONE (10:22)
--- NOTE | 2020-10-06 11:07 | Anesthesiology Progress Note ---
Date of Service October 06, 2020 Anesthesia Post Procedure Vital Signs Vital Signs: Temp Pulse Pulse Resp BP Pulse Ox 10/06/20 10:51 37.3 C 113 H 18 156/98 H 96 10/06/20 09:45 108 H 18 155/94 H 94 10/06/20 09:25 100 H 18 161/95 H 97 10/06/20 08:50 36.8 C 92 H 18 166/100 H 95 10/06/20 08:30 36.6 C 94 H 13 150/92 H 95 10/06/20 08:20 92 H 17 161/97 H 95 10/06/20 08:11 36.0 C L 97 H 16 150/92 H 94 10/05/20 23:33 37.5 C 95 H 18 147/81 H 94 10/05/20 16:08 144/82 H 10/05/20 15:31 36.5 C 77 16 152/95 H 96 Pain Intensity Right Lower Abdomen: Pain Intensity: 7 Transfer of Care Handoff Completed per policy Notes Mental Status: alert / awake / arousable and participated in evaluation Nausea / Vomiting: adequately controlled Pain: adequately controlled Airway Patency, RR, SpO2: stable & adequate BP & HR: stable & adequate Hydration State: stable & adequate Anesthetic Complications: no major complications apparent and Pt Satisfied with anesthetic care
[2020-10-06] MEDS ORDERED: MAGNESIUM SULFATE / D5W 1 GM/100 ML BAG IV ONE (13:30)
[2020-10-06] MEDS: ACETAMINOPHEN 325 MG TAB PO PRN (19:46)
[2020-10-07] MEDS: ACETAMINOPHEN 325 MG TAB PO PRN (03:42)
[2020-10-07] MEDS: SODIUM CHLORIDE 0.9% 1000ML 1,000 ML IV SCH (03:42)
--- NOTE | 2020-10-07 07:54 | Hospitalist Progress Note ---
Date of Service October 07, 2020 Assessment & Plan (1) Renal colic on right side: (2) Ureterolithiasis: (3) FREDDIE (acute kidney injury): (4) S/P ureteral stent placement: Plan: This is a 65-year-old male, presents with right renal colic. 1. Right renal colic and obstructing proximal right ureteral calculus. Received pain medication and Flomax in the ER. Continued with IV fluids, IV Dilaudid p.r.n., Flomax. Gave Rocephin and consulted urology. Monitor in the medical floor. Seen by urology, now s/p Right ureteral stent placement (10/06). Tolerated procedure well. Urology follow-up scheduled for October 09. 2. FREDDIE.- resolved Secondary to above Baseline creatinine 1.3, on admission creatinine 1.6. Getting fluids as above. Hold losartan. Yesterday (10/06) - Cr 1.8 Now Cr down to 1 - resolved 3. Hypertension. Holding losartan for FREDDIE , IV hydralazine p.r.n., while inpt 4. Gastroesophageal reflux disease. Continue Protonix. DVT prophylaxis. SCDs for now. DISPOSITION: Plan to discharge home and follow up with family doctor and urology. Code: full code. Admission and Anticipated Discharge Date Admission Date: October 05, 2020 Subjective Patient seen in follow-up of ureteral stone Patient is currently status post procedure, stent placement yesterday morning He is sitting up in bed, in NAD Pain well controlled at this time No fever, chills, chest pain, abd. pain, nausea Cr down to 1 Patient is inquiring about going home Review of Systems Review of Systems: All systems reviewed & are unremarkable except as noted in Subjective Physical Exam Physical Exam: GENERAL: The patient is of moderate build, not in acute distress. HEENT: NC/AT. EOMI. Oral mucosa moist. NECK: No JVD, no neck masses. CARDIOVASCULAR: S1 and S2 heard. Regular rate and rhythm. No murmur, no gallop. RESPIRATORY: Normal AP diameter. No accessory muscle use. No wheezing, no crackles. ABDOMEN: Soft, bowel sounds present. Mild tenderness in right lower quadrant. No guarding, no rigidity, no distention. NEURO: alert and oriented x3, speech fluent, no facial asymmetry, moves extremities. EXTREMITIES: No edema, no erythema. Results & Data Results & Data ([facility]) Vital Signs (Past 12 Hours) Vital Signs Temp Pulse Resp BP Pulse Ox 10/07/20 03:32 37.2 C 92 H 18 154/89 H 96 10/06/20 22:10 36.9 C 95 H 18 153/83 H 94 Laboratory Results 10/07/20 10/07/20 Range/Units 08:13 08:13 WBC 10.53 (4.8-10.8) K/uL RBC 4.56 L (4.7-6.1) M/uL Hgb 13.9 L (14.0-18.0) g/dL Hct 40.4 L (42-52) % MCV 88.6 (80-100) fL MCH 30.5 (25-34) pg MCHC 34.4 (32-36) g/dL RDW Std Deviation 45.3 (36.4-46.3) fL RDW Coeff of Rubina 14.0 (11.5-14.5) % Plt Count 202 (130-400) K/uL MPV 10.6 H (7.4-10.4) fL Sodium 143 (136-145) mmol/L Potassium 3.8 (3.5-5.1) mmol/L Chloride 110 H (98-107) mmol/L Carbon Dioxide 24 (21-32) mmol/L Anion Gap 9.0 (3-11) BUN 12 (7-18) mg/dl Creatinine 1.05 (0.6-1.4) mg/dl Est Cr Clr Drug Dosing 65.0 ml/min Est GFR ( Amer) 85.3 ml/min Est GFR (Non-Af Amer) 73.6 ml/min BUN/Creatinine Ratio 11.8 (10-20) Glucose 92 (70-99) mg/dl Calcium 9.0 (8.5-10.1) mg/dl Phosphorus 2.1 L (2.5-4.9) mg/dl Magnesium 2.2 (1.8-2.4) mg/dl
--- NOTE | 2020-10-07 08:36 | Urology Progress Note ---
Date of Service October 07, 2020 Assessment & Plan (1) Ureterolithiasis: (2) S/P ureteral stent placement: Plan: 65 yo M POD #1 cystoscopy and right stent insertion with Dr. Manuel. - Doing well, progressing as expected - Afebrile, lab work reviewed - creatinine 1.05, WBC 10.53 - Tolerating right ureteral stent with minimal bother - Okay to d/c from perspective when medically stable - Recommend d/c with short course of PO antibiotics, Tamsulosin, prn Pyridium, prn pain medication for ureteral stent management - Will order KUB to check stone visualization prior to discharge - Expected clinical course reviewed, all questions answered - Will arrange outpatient follow-up with our service to discuss definitive stone management Thank you for allowing us to participate in the acute care of Mr. Quevedo. Please reconsult us with additional questions, concerns or changes in patient status. Admission and Anticipated Discharge Date Admission Date: October 05, 2020 Subjective 65 yo M POD #1 cystoscopy and right stent insertion with Dr. Manuel. Patient awake, alert and sitting up in bed. Reports no issues overnight. No flank pain. Reports he took Tylenol for headache. Tolerating diet, no N/V. Voiding. No dysuria, reports orange urine but clearing. No F/C. Review of Systems Constitutional: as per Subjective / HPI Gastrointestinal: as per Subjective / HPI Genitourinary: + as per Subjective / HPI Physical Exam Constitutional: well developed and well nourished; no acute distress and not ill appearing Respiratory: normal respiratory effort and able to speak in complete sentences; no respiratory distress and no labored breathing Gastrointestinal (Abdomen): Inspection/Auscultation: abdomen normal to inspection; abdomen not distended Musculoskeletal: Head/Neck/Chest: normocephalic and head atraumatic Neurologic: moves all extremities and awake Psychiatric: Orientation: alert and oriented x 3 Results & Data ([facility]) Vital Signs (Past 12 Hours) Vital Signs Temp Pulse Resp BP BP Pulse Ox 10/07/20 07:53 37.1 C 87 18 163/95 H 94 10/07/20 03:32 37.2 C 92 H 18 154/89 H 96 10/06/20 22:10 36.9 C 95 H 18 153/83 H 94 PG Care Time/CCT Total # of Minutes Spent Total Time Spent with Patient: Total time spent is greater than 50% in coordination of care (as documented) at patient's floor/unit and/or counseling patient: Coding Level of Care Code 97250 Subseq Hosp Care Lvl 2 Diagnoses Ureterolithiasis N20.1 S/P ureteral stent placement Z96.0
[2020-10-07 08:44] LABS: Hematocrit (blood only) 40.4 % (42-52); Hemoglobin 13.9 g/dL (14.0-18.0); Mean Corpuscular Hemoglobin 30.5 pg (25-34); Mean Corpuscular Hgb Conc 34.4 g/dL (32-36); Mean Corpuscular Volume 88.6 fL (80-100); Mean Platelet Volume 10.6 fL (7.4-10.4); Platelet Count 202 K/uL (130-400); RDW Standard Deviation 45.3 fL (36.4-46.3); Red Blood Count 4.56 M/uL (4.7-6.1); White Blood Count 10.53 K/uL (4.8-10.8)
[2020-10-07 09:26] LABS: BUN Creatinine Ratio 11.8 (10-20); Est GFR (African American) 85.3 ml/min; Est GFR (Non-African American) 73.6 ml/min; Magnesium 2.2 mg/dl (1.8-2.4); Phosphorus 2.1 mg/dl (2.5-4.9); Potassium 3.8 mmol/L (3.5-5.1)
[2020-10-07] MEDS: cefTRIAXone SODIUM 1,000 MG in DEXTROSE 5% 50 ML IV SCH (09:30)
[2020-10-07] MEDS: LIDOCAINE 5% 1 PATCH TD SCH ×2 (09:30→09:37)
[2020-10-07] MEDS: PHENAZOPYRIDINE HCL 200 MG TAB PO SCH (09:38)
[2020-10-07] MEDS: PANTOprazole 40 MG TAB PO SCH (09:38)
[2020-10-07] MEDS: TAMSULOSIN HCL 0.4 MG CAP PO SCH (09:38)
--- NOTE | 2020-10-07 10:16 | XRay Report ---
KUB CLINICAL HISTORY: Right ureteral stent. FINDINGS: 2 AP supine abdominal radiographs are correlated with abdominal CT dated 10/04/2020. There i s a nonobstructed abdominal bowel gas pattern. Moderate fecal retention is seen in the right colon. A right ureteral stent is in place. No calcifications are seen along the course of the stent. There ar e at least 3 calcifications projecting over the right kidney which measure up to 9 mm. No calcificati ons are clearly seen projecting over the left kidney or along the course of the left ureter. Numerous vascular calcifications are noted in the pelvis. The bony structures appear intact. IMPRESSION: 1. A right ureteral stent is in place. No calculus is clearly seen projecting over the right ureter a long the course of the stent. The large right ureteral stone seen by CT on 10/04/2020 may have been pu shed back into the renal collecting system. Clinical correlation will be required. 2. Right renal calculi as above. Electronically signed by: Darnell Schofield M.D. 10/07/2020 10:15 AM
[2020-10-07] MEDS ORDERED: POLYETHYLENE (MIRALAX) 17 GM PACK PO ONE (12:23)
--- NOTE | 2020-10-07 19:20 | Discharge Summary ---
Date of Service October 07, 2020 Admission HPI Per Admitting Provider This is a 65-year-old male with past medical history significant for hypertension, history of gastritis, history of rosacea, chronic back pain, presents with right sided abdominal pain and groin pain, started tonight, initially mild,but soon was very severe, also some nausea and radiated to the back which prompted him to come to the ER. Imaging studies shows right proximal ureteral kidney stone, 9 mm. The patient thinks that he might have passed a stone over 6 years ago; but otherwise not diagnosed with kidney stones in the past. Denies any fever or chills. No burning micturition, no hematuria. Normal bowel movements. No diarrhea or constipation. No chest pain, no shortness of breath, no cough, no fever, no chills, no headache, no dizziness, no blurred visions, no earache, no runny nose, no sore throat. Appetite is okay. Currently, resting comfortably and hemodynamically stable. Admission Exam Per Admitting Provider GENERAL: The patient is of moderate build, not in acute distress. VITAL SIGNS: Temperature 36.3, pulse 71, respiratory rate 20, blood pressure 170/105, oxygen 98% on room air. HEENT: EOMI. Oral mucosa moist. NECK: No JVD, no neck masses. CARDIOVASCULAR: S1 and S2 heard. Regular rate and rhythm. No murmur, no gallop. RESPIRATORY: Normal AP diameter. No accessory muscle use. No wheezing, no crackles. ABDOMEN: Soft, bowel sounds present. Mild tenderness in right lower quadrant. No guarding, no rigidity, no distention. CENTRAL NERVOUS SYSTEM: Cranial nerves II-XII grossly intact, nonfocal. EXTREMITIES: No edema, no erythema. Principal Diagnosis Right ureteral obstructing stone, status post right stent insertion Acute kidney injury Discharge Exam GENERAL: The patient is of moderate build, not in acute distress. HEENT: NC/AT. EOMI. Oral mucosa moist. NECK: No JVD, no neck masses. CARDIOVASCULAR: S1 and S2 heard. Regular rate and rhythm. No murmur, no gallop. RESPIRATORY: Normal AP diameter. No accessory muscle use. No wheezing, no crackles. ABDOMEN: Soft, bowel sounds present. Mild tenderness in right lower quadrant. No guarding, no rigidity, no distention. NEURO: alert and oriented x3, speech fluent, no facial asymmetry, moves extremities. EXTREMITIES: No edema, no erythema. Discharge Data Allergies Allergy/AdvReac Type Severity Reaction Status Date / Time atenolol Allergy Unknown Unresponsiv Verified 10/07/20 11:38 e Consultations 10/05/20 00:21 ED Decision to Admit Stat 10/05/20 08:00 Consult Urology Routine Procedures Performed Operation Date: 10/06/20 08:20 Actual Procedures p Cystoscopy; Right Ureteral Stent Insertion(Right) - Lucina Munoz MD Ordered Studies 10/04/20 22:20 CT abd pelvis wo con Stat IMPRESSION: 1. There is a 9 mm obstructing calculus in the right proximal ureter as above. This causes moderate to severe right hydronephrosis. 2. Additional nonobstructing right renal calculi as above. 3. No left renal calculi are seen. 10/06/20 FL KUB Routine IMPRESSION: 1. A right ureteral stent is in place. No calculus is clearly seen projecting over the right ureter along the course of the stent. The large right ureteral stone seen by CT on 10/04/2020 may have been pushed back into the renal collecting system. Clinical correlation will be required. 2. Right renal calculi as above. Hospital Course (1) Renal colic on right side: (2) Ureterolithiasis: (3) FREDDIE (acute kidney injury): (4) S/P ureteral stent placement: This is a 65-year-old male, presents with right renal colic. 1. Right renal colic and obstructing proximal right ureteral calculus. Received pain medication and Flomax in the ER. Continued with IV fluids, IV Dilaudid p.r.n., Flomax. Gave Rocephin and consulted urology. Monitor in the medical floor. Seen by urology, now s/p Right ureteral stent placement (10/06). Tolerated procedure well. Plan to discharge on p.o. antibiotics (ciprofloxacin ordered), short course, Pyridium, Flomax, and as needed small dose of oxycodone. Urology follow-up scheduled for October 09. 2. FREDDIE.- resolved Secondary to above Baseline creatinine 1.3, on admission creatinine 1.6. Getting fluids as above. Hold losartan. Yesterday (10/06) - Cr 1.8 Now Cr down to 1 - resolved 3. Hypertension. Holding losartan for FREDDIE , IV hydralazine p.r.n., while inpt 4. Gastroesophageal reflux disease. Continue Protonix. DVT prophylaxis. SCDs for now. DISPOSITION: Plan to discharge home and follow up with family doctor and urology. Code: full code. Total Time Total Time Spent Total Time Spent (In Minutes): 35 Discharge Plan Discharge Items Patient Disposition: Home - Self-Care Reason For Visit: ABDOMINAL PAIN Discharge Diagnosis: Right ureteral obstructing stone, status post right stent insertion Acute kidney injury Condition on Discharge: Good Activity: Per Instructions section Non-emergency contact: Primary Care Provider and Urologist Call non-emergency contact if: you have any medication questions and your symptoms worsen Follow-up/Referrals: Noble Olivares MD [Primary Care Provider] - (Date & Time 10/11/2020 10:00 AM Provider Noble Olivares MD Department [facility] ) Mari Mulligan CRNP [Nurse Practitioner] - 10/09/20 10:45 am Diet: Regular Addtl Attending Provider Instructions: Follow up with the primary care doctor and urologist. The appointment with primary care doctor was scheduled for October 11, and the appointment with urology was scheduled for October 09. In the meantime, finish antibiotic treatment, with ciprofloxacin, as prescribed. Take Flomax daily. For pain, you can take Tylenol 1000 mg 3 times a day, maximal daily dose is 3000 mg a day. You can also use Pyridium, as prescribed or for more severe pain oxycodone, use as prescribed. Try to avoid constipation, you can use MiraLAX daily or Colace, these are both obtainable [id number]. For blood pressure, continue lisinopril, however do not take losartan for now, until seen by your family physician. If you are able to, check your blood pressure at home and record these numbers. It will be helpful for your family physician to adjust blood pressure medications if you provide them with these numbers. In addition recommend not to take diclofenac, until seen by family physician. Addtl Reimbursement Liaison Provider Instructions: [place] [facility] [place] [facility] You are scheduled for follow-up on 10/09/20 at 10:45 AM with KASEY Jaquez. Location: [address] [place] [address]. Call our office at [phone] if you need to reschedule or if you have ques tions. Pending Studies at Discharge: No Stand-Alone Forms: [facility], Smoking Cessation Medications and DC Order Prescriptions: New tamsulosin 0.4 mg Capsule 0.4 mg PO QAM Qty: 30 RF: 0 oxycodone 5 mg Tablet 5 mg PO Q4H PRN (Reason: pain) Qty: 5 RF: 0 lidocaine 5 % Adhesive Patch,Medicated 1 patch transdermal QAM Qty: 15 RF: 0 phenazopyridine [Pyridium] 200 mg Tablet 200 mg PO TID PRN (Reason: pain) Qty: 14 RF: 0 ciprofloxacin HCl 500 mg tablet 500 mg PO BID 3 Days Qty: 6 RF: 0 Continued omeprazole 40 mg Capsule,Delayed Release(Dr/Ec) 40 mg PO QAM RF: 0 lisinopril 10 mg Tablet 10 mg PO QAM RF: 0 tramadol 50 mg tablet 50 mg PO Q6H PRN (Reason: pain) Qty: 30 RF: 0 pantoprazole 40 mg Tablet,Delayed Release (Dr/Ec) 40 mg PO DAILY RF: 0 Discontinued diclofenac sodium 75 mg tablet,delayed release (DR/EC) 75 mg PO BID Qty: 60 RF: 2 losartan 25 mg Tablet 25 mg PO HS RF: 0 Discharge Orders: Discharge Order (Routine); Ordered 10/07/20 Ordered By: Yrn Walker/Other Patient Handouts: Having a Ureteral Stent Admission Data Admit Date/Time: 10/05/20 01:18 Attending Provider: Yrn Gaming Admit Provider: Guilherme Sutton Primary Care Provider: Noble Olivares Other Providers: Guilherme Sutton ; Jay Spain ; Micah Dorantes ; Hemant Escobar ; Eva Strauss ; Kip Goncalves ; Valeria Gordon ; Daily Wilkerson ; Savannah Munoz ; Stanton Cabrera ; Flaco Bright ; Mari Mulligan ; Lucina Munoz Other Interventions: Discharge Summary Assessment (RN) Last Done: 10/07/20 12:43
== END 2020-10-07 13:46 | disposition home or self-care (01) | DRG 661 ==
LOC: ED 21:57 → 3N 10-05 01:18 → MERGE 10-05 01:18 → 3N 10-05 02:03